=== PATIENT | male | born 1970 | race Caucasian/White ===

== ENCOUNTER 2022-06-15 02:16 | Day surgery (SDC) | payer OTHER, SELFPAY ==
[2022-05-31 09:51] VITALS: BMI 29.5
[2022-06-15 09:20] VITALS: BP 127/87; PULSE 83; RESP 18; TEMP 36.2; O2SAT 99
[2022-06-15] MEDS: LACTATED RINGERS 1,000 ML 150 ML IV CONT (09:22)
--- NOTE | 2022-06-15 09:52 | P.HP_ITS ---
History of Present Illness History of Present Illness Consent: Risks, benefits, and alternatives have been discussed and questions answered. Patient agrees to proceed with procedure. Chief complaint: neoplasm screening Narrative: Sameer Lang is a 51 year old male Presents for screening colonoscopy. Patient's current weight appetite and bowel movements are normal. Patient denies abdominal pain. He has had no bleeding. Family history is noncontributo ry. Patient reports previous colonoscopy 10 years ago that was unremarkable. Review of Systems Review of Systems: Review of systems noncontributory. [facility] Social History Social History Alcohol intake: current Drinks per week: 6 Substance use type: does not use Living arrangements: with family Spiritual care concerns: No Meds Home Medications and Allergies Home Medications Medication Instructions Recorded Confirmed Type amitriptyline 10 mg tablet 10 mg PO HS 05/31/22 06/15/22 History celecoxib 200 mg capsule 200 mg PO BID 05/31/22 06/15/22 History cholecalciferol (vitamin D3) 50 50 mcg PO DAILY 05/31/22 06/15/22 History mcg (2,000 unit) capsule (Vitamin D3) dicyclomine 10 mg capsule 10 mg PO DAILY 05/31/22 06/15/22 History lisinopril 20 1 tablet PO DAILY 05/31/22 06/15/22 History mg-hydrochlorothiazide 12.5 mg tablet (Zestoretic) loratadine 10 mg tablet (Claritin) 10 mg PO DAILY 05/31/22 06/15/22 History omega-3 fatty acids 1,000 mg PO BID 05/31/22 06/15/22 History pantoprazole 40 mg tablet,delayed 40 mg PO QAM 05/31/22 06/15/22 History release (Protonix) psyllium husk 0.4 gram capsule 0.4 g PO DAILY 05/31/22 06/15/22 History (Daily Fiber) ropinirole 0.5 mg tablet 0.5 mg PO DAILY 05/31/22 06/15/22 History rosuvastatin 20 mg tablet (Crestor) 20 mg PO DAILY 05/31/22 06/15/22 History Allergies Allergy/AdvReac Type Severity Reaction Status Date / Time No Known Allergies Allergy Verified 06/15/22 09:19 Vital Signs Vital Signs - 24 hr 06/15/22 09:20 Temperature 97.1 F L Pulse Rate 83 Respiratory Rate 18 Blood Pressure 127/87 Pulse Oximetry 99 Oxygen Delivery Room Air Exam Narrative: Physical exam reveals patient to be alert. Vital signs stable. HEENT exam is unremarkable. Patient is anicteric. Lungs are clear to auscultation and percussion. Heart is without murmur or extra sounds. Abdomen bowel sounds are present soft nontender with no organomegaly. Digital external rectal exam is normal. Assessment and Plan Assessment and plan (1) Encounter for screening colonoscopy: Code(s): Z12.11 - Encounter for screening for malignant neoplasm of colon Status: Acute Assessment and Plan: Patient presents today for screening colonoscopy. He appears to be at average risk for colon polyps.
--- NOTE | 2022-06-15 10:26 | WPDANESEPPF ---
Anes - Initial Pre Proc Eval Procedure: Operation Date: 06/15/22 10:30 Proposed Procedures p Screening Colonoscopy - Perez Bo MD Date/Time: 06/15/22 10:26 Surgeon: Perez Bo MD Pre Op Diagnosis: neoplasm screening Patient Data Age: 51 Gender: M Height: 1.73 m Weight: 91.2 kg Last Vital Signs Temp 97.1 F L 06/15/22 09:20 Pulse 83 06/15/22 09:20 Resp 18 06/15/22 09:20 BP 127/87 06/15/22 09:20 Pulse Ox 99 06/15/22 09:20 O2 Del Method Room Air 06/15/22 09:20 Allergies Allergy/AdvReac Type Severity Reaction Status Date / Time No Known Allergies Allergy Verified 06/15/22 09:19 Home Medications Medication Instructions Recorded Confirmed Type amitriptyline 10 mg tablet 10 mg PO HS 05/31/22 06/15/22 History celecoxib 200 mg capsule 200 mg PO BID 05/31/22 06/15/22 History cholecalciferol (vitamin D3) 50 50 mcg PO DAILY 05/31/22 06/15/22 History mcg (2,000 unit) capsule (Vitamin D3) dicyclomine 10 mg capsule 10 mg PO DAILY 05/31/22 06/15/22 History lisinopril 20 1 tablet PO DAILY 05/31/22 06/15/22 History mg-hydrochlorothiazide 12.5 mg tablet (Zestoretic) loratadine 10 mg tablet (Claritin) 10 mg PO DAILY 05/31/22 06/15/22 History omega-3 fatty acids 1,000 mg PO BID 05/31/22 06/15/22 History pantoprazole 40 mg tablet,delayed 40 mg PO QAM 05/31/22 06/15/22 History release (Protonix) psyllium husk 0.4 gram capsule 0.4 g PO DAILY 05/31/22 06/15/22 History (Daily Fiber) ropinirole 0.5 mg tablet 0.5 mg PO DAILY 05/31/22 06/15/22 History rosuvastatin 20 mg tablet (Crestor) 20 mg PO DAILY 05/31/22 06/15/22 History Patient hx anesthesia problems: none Family hx anesthesia problems: none Results Review: All pre-operative results and documents have been reviewed as part of the pre-operative evaluation. [facility] Social History Social History Alcohol intake: current Drinks per week: 6 Substance use type: does not use Living arrangements: with family Spiritual care concerns: No Anes - Eval Final PreProcedure Day of Procedure 06/15/22 10:26 Patient weight: normal Heart: regular rate and rhythm Lungs: clear to auscultation Airway: Mallampati scale Neurological: alert and oriented Last oral intake: >/= 8 hours ASA classification: II Emergent: no Anesthetic plan: proceed Anesthesia type and monitoring: general GIVS and standard monitoring Results Review: All pre-operative results and documents have been reviewed as part of the pre-operative evaluation. Informed Consent: The patient's anesthetic plan and its attendant risks and benefits were discussed with the patient/family/POA. Questions were solicited and answers provided to the satisfaction of the patient/family/POA.
[2022-06-15 10:46] VITALS: BP 118/79; PULSE 83; RESP 22; O2SAT 97
[2022-06-15 10:56] VITALS: BP 125/85; PULSE 82; RESP 17; O2SAT 97
[2022-06-15 11:06] VITALS: BP 118/71; PULSE 68; RESP 24; O2SAT 97
== END 2022-06-15 11:12 | disposition home or self-care (01) ==
PROVIDERS: Visit Provider Internal Medicine Gastroenterology
PROC: 0DJD8ZZ Inspection of Lower Intestinal Tract, Via Natural or Artificial Opening Endoscopic (ICD-10-PCS; CPT 45378; principal; 2022-06-15 10:30)
DX: Z12.11 Encounter for screening for malignant neoplasm of colon (principal); K64.8 Other hemorrhoids
CPT/HCPCS: 45378; J2704; J7120

== ENCOUNTER 2024-03-29 10:00 | Emergency (ER) | payer OTHER, SELFPAY ==
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
[2024-03-29 10:02] VITALS: BP 163/86; PULSE 78; RESP 14; TEMP 37; O2SAT 96
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
[2024-03-29 12:08] VITALS: BP 140/88
== END 2024-03-29 12:09 | disposition home or self-care (01) ==
PROVIDERS: Emergency Provider Emergency Medicine
DX: S46.811A Strain of other muscles, fascia and tendons at shoulder and upper arm level, right arm, initial encounter (principal); V89.2XXA Person injured in unspecified motor-vehicle accident, traffic, initial encounter
CPT/HCPCS: 73030; 99283